=== PATIENT | female | born 1965 | race African-American/Black ===

== ENCOUNTER 2017-06-11 07:35 | Emergency (ER) | payer OTHER ==
[~2017-06-11] VITALS: Wt 88.5 kg
[2017-06-11 08:04] LABS: BASO # 0.1 10*3/uL (0.0-0.1); BASO % 0.8 % (0.0-1.0); EOS # 0.1 10*3/uL (0.0-0.4); HEMATOCRIT 39.6 % (37.0-47.0); HEMOGLOBIN 13.5 g/dl (12.0-16.0); LYMPH # 3.3 10*3/uL (1.3-4.4); LYMPH % 49.8 % (27.0-41.0); MEAN CELL VOLUME 87.8 fl (81.0-99.0); MEAN CORPUSCULAR HGB 29.9 pg (27.0-31.0); MEAN CORPUSCULAR HGB CONC 34.1 g/dl (33.0-37.0); MEAN PLATELET VOLUME 10.1 fl (9.6-12.3); MONO # 0.5 10*3/uL (0.1-1.0); MONO % 7.1 % (3.0-9.0); NEUT # 2.6 10*3/uL (2.3-7.9); NEUT % 39.7 % (47.0-73.0); PLATELET COUNT AUTOMATED 236 10*3/uL (130-400); RED BLOOD COUNT 4.51 10*6/uL (4.10-5.10); RED CELL DISTRI WIDTH 12.5 % (0-14.5); WHITE BLOOD COUNT 6.6 10*3/uL (4.8-10.8)
[2017-06-11 08:28] LABS: ALBUMIN 4.4 gm/dl (3.1-4.5); ALKALINE PHOSPHATASE 101 U/L (45-117); BUN 16 mg/dl (7-24); CHLORIDE 101 mmol/L (98-107); CREATININE 0.87 mg/dL (0.55-1.02); POTASSIUM 3.4 mmol/L (3.5-5.1); SGOT/AST 35 IU/L (3-35); SGPT/ALT 51 U/L (12-78); SODIUM 138 mmol/L (136-145); TOTAL PROTEIN 8.8 gm/dL (6.4-8.2)
[2017-06-11 08:29] LABS: ACETAMINOPHEN (TYLENOL) < 2.0 ug/ml (10-30); ETHYL ALCOHOL < 3.0 mg/dl (<3)
[2017-06-11 09:37] LABS: BILIRUBIN NEGATIVE (NEGATIVE); BLOOD NEGATIVE (NEGATIVE); CLARITY CLEAR (CLEAR); COLOR YELLOW (YELLOW); GLUCOSE NEGATIVE (NEGATIVE); KETONE NEGATIVE (NEGATIVE); LEUKO ESTERASE NEGATIVE (NEGATIVE); NITRITE NEGATIVE (NEGATIVE); UROBILINOGEN 0.2 E.U./dl (0.2-1.0)
[2017-06-11 09:43] LABS: BACTERIA TRACE
[2017-06-11 09:48] LABS: URINE AMPHETAMINES < 1000 (1000ng/ml); URINE BARBITURATES < 200 (200ng/ml); URINE BENZODIAZEPINES < 200 (200ng/ml); URINE CANNABINOIDS (THC) < 50 (50ng/ml); URINE COCAINE < 300 (300ng/ml); URINE METHADONE < 300 (300ng/ml); URINE OPIATES < 300 (300ng/ml)
[2017-06-11 09:49] LABS: URINE PHENCYCLIDINE < 25 (25ng/ml)
== END 2017-06-11 10:25 | disposition home or self-care (01) ==
LOC: ED 07:35
PROVIDERS: Student in an Organized Health Care Education/Training Program
DX: R56.9 Unspecified convulsions (principal)